=== PATIENT | male | born 1965 | race Caucasian/White ===

== ENCOUNTER → 2021-06-13 | Outpatient (CLI) | payer OTHER ==
--- NOTE | 2021-06-14 13:39 | KCIC ---
EXAM: XR LUMBAR SPINE 4+V 06/13/2021 4:10 PM CLINICAL INDICATION: Acute left-sided low back pain with sciatica COMPARISON: None TECHNIQUE: 5 views of the lumbar spine FINDINGS: There 5 nonrib-bearing lumbar vertebral bodies. No acute fracture. Alignment is normal. Th ere is moderate disc space at L5-S1 and mild at the remaining levels. Small anterior osteophytes, gre atest at L3-4 through L5-S1. Mild lower lumbar facet arthrosis. IMPRESSION: Mild degenerative disc disease, greatest at L5-S1. Electronically signed by: Lauren Dominique MD (06/14/2021 1:37 PM) [id number]
== END ==
LOC: KCIC 15:58
PROVIDERS: ATTEND Family Medicine
DX: M51.17 Intervertebral disc disorders with radiculopathy, lumbosacral region (principal); M25.78 Osteophyte, vertebrae
CPT/HCPCS: 72110